=== PATIENT | male | born 1980 | race Caucasian/White ===

== ENCOUNTER 2021-11-12 15:45 | Outpatient (RCR) | payer BC, SELFPAY | END 2022-01-06 15:12 | disposition home or self-care (01) | PROVIDERS: Visit Provider Physician Assistant Surgical | DX: S93.412A Sprain of calcaneofibular ligament of left ankle, initial encounter (principal); R26.9 Unspecified abnormalities of gait and mobility; Z51.89 Encounter for other specified aftercare | CPT/HCPCS: 97032; 97110; 97140; 97161 ==